=== PATIENT | female | born 1935 | race Caucasian/White ===

== ENCOUNTER → 2018-07-22 06:36 | Outpatient (CLI) | payer MEDICARE, SELFPAY ==
--- NOTE | 2018-07-22 06:40 | NM_ITS ---
History and Indications: Hypertension, hyperlipidemia, family history, chest pain and shortness of breath Procedure: Patient received a 0.4 mg of intravenous Lexiscan, resting heart rate was 61 beats per minutes resting blood pressure 145/75, with Lexiscan maximum heart rate achieved was 80 bpm which is less than 85% of the maximum predicted heart rate and a blood pressure was 125/63. With Lexiscan patient complained of shortness of breath Electrocardiogram: Resting electrocardiogram showed sinus rhythm, with Lexiscan there is less than 1.5 ST segment depression noted from the baseline EKG. The EKG portion of the Lexiscan Myoview is nondiagnostic. Cardiac stress and resting SPECT images: Cardiac stress and rest SPECT images were obtained using technetium 99 Myoview 32.7 mCi stress and 10.9 mCi at rest. Gated SPECT further analysis of segmental wall motion and calculation of the ejection fraction also done. Cardiac stress and rest SPECT images show uniform myocardial activity without segmental perfusion abnormality, computer derived ejection fraction is over 65% no regional wall motion abnormality, right ventricle are normal size and contractility. Conclusion: 1. The EKG portion of the Lexiscan Myoview is nondiagnostic. 2. No obvious scintigraphic evidence of reversible ischemia seen, computer derived ejection fraction is over 65% with no regional wall motion abnormality, right ventricle is normal size and contractility. 3. Normal Lexiscan Myoview study.
--- NOTE | 2018-07-22 06:40 | CA_ITS ---
PROCEDURE: 2-D M-mode and color Doppler study INDICATIONS FOR THE TEST: Chest pain + COPD Heart Murmur Tobacco Smoking Palpitations Fatigue Syncope Edema Hypertension Diabetes Mellitus Rheumatic Fever SOB+DURAN Obesity Hyperlipidemia Family History HD+ Additional History PATIENT INFORMATION HEIGHT: 62 WEIGHT:155 GENDER: Female B/P:130/66 2-D/M-MODE INTERPRETATION: 2-D MEASUREMENTS OBSERVED VALUES IN CMS Right Ventricular Dimension (RVDd) 1.7 Interventricular Septum (Thickness)(IVsd) 1.0 Left Ventricular Internal Dimensions(LVIDd) 5.2 Left Ventricular Posterior Wall (Thickness)(LVPWd) 1.1 Aortic Root 3.5 Aortic Cusp Separation 1.0 Left Atrial Dimensions (LAD) 3.0 2D 1. Left atrium is mildly enlarged, left ventricle is normal size, visually estimated ejection fraction 55% with no regional wall motion abnormality. 2. The right atrium and the ventricular normal size and contractility 3. The aortic valve is thickened and calcified leaflet continue to display mobility. 4. The mitral and tricuspid valve leaflets are minimally thickened 5. The pulmonic valve is poorly visualized. 6. No significant pericardial effusion noted. DOPPLER INTERROGATION: 1. The maximum aortic out flow velocity recorded study 2.2 m/s, resulting in a mean gradient across valve of 9 mmHg represents mild aortic stenosis, there is no aortic insufficiency present. 2. Mild mitral and tricuspid regurgitation, calculated right ventricular systolic pressure is 40 mmHg consistent with mild pulmonary hypertension, grade 1 diastolic dysfunction seen with tissue Doppler evidence of raised left atrial pressure. CONCLUSION: 1. Mildly enlarged left atrium, normal left ventricular size, visually estimated ejection fraction 55% with no regional wall motion abnormality, grade 1 diastolic dysfunction seen with tissue Doppler evidence of raised left atrial pressure. 2. Thickened and calcified aortic valve, mean gradient across valve of 9 mmHg represents mild aortic stenosis, there is no aortic insufficiency. 3. Mild mitral and tricuspid regurgitation, calculated right ventricular systolic pressure is 40 mmHg consistent with mild pulmonary hypertension. 4. No significant pericardial effusion noted.
--- NOTE | 2018-07-22 07:49 | HMH.ITSHM ---
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 []AMLODIPINE ASA CARVEDILOL LEVOTHYROXINE OMEPRAZOLE VITAMIN D3
== END ==
PROVIDERS: PCP Family Medicine; Visit Provider Internal Medicine
DX: R07.89 Other chest pain (principal); R06.02 Shortness of breath
CPT/HCPCS: 78452; 93017; 93306; A9502; J2785

== ENCOUNTER → 2018-08-04 12:03 | Outpatient (CLI) | payer MEDICARE, SELFPAY ==
[2018-08-04 14:05] LABS: Anion Gap 14.2 mEq/L (5-15); Blood Urea Nitrogen 20 mg/dL (7-18); Calcium 9.1 mg/dL (8.5-10.1); Carbon Dioxide 27 mmol/L (21.0-32.0); Chloride 102 mmol/L (98-107); Creatinine,Serum 1.92 mg/dL (0.55-1.02); Estimated Glomerular Filt Rate 25 ml/min (>60); GFR (African American) 30 ML/MIN (>60); Glucose 133 mg/dL (74-106); Potassium 4.2 mmoL/L (3.5-5.1); Sodium 139 mmol/L (136-145)
== END ==
PROVIDERS: Visit Provider Physician Assistant
DX: I20.9 Angina pectoris, unspecified (principal); I27.20 Pulmonary hypertension, unspecified; I35.0 Nonrheumatic aortic (valve) stenosis; R06.02 Shortness of breath; R42 Dizziness and giddiness
CPT/HCPCS: 36415; 80048

== ENCOUNTER → 2018-10-13 09:30 | Outpatient (CLI) | payer MEDICARE, SELFPAY ==
[2018-10-13 11:38] LABS: Anion Gap 13.9 mEq/L (5-15); Blood Urea Nitrogen 26 mg/dL (7-18); Calcium 9.5 mg/dL (8.5-10.1); Carbon Dioxide 30 mmol/L (21.0-32.0); Chloride 101 mmol/L (98-107); Creatinine,Serum 2.18 mg/dL (0.55-1.02); Estimated Glomerular Filt Rate 22 ml/min (>60); GFR (African American) 26 ML/MIN (>60); Glucose 135 mg/dL (74-106); Potassium 3.9 mmoL/L (3.5-5.1); Sodium 141 mmol/L (136-145)
== END ==
PROVIDERS: Nurse Practitioner Family; PCP Family Medicine; Visit Provider Internal Medicine
DX: E78.5 Hyperlipidemia, unspecified (principal); I11.9 Hypertensive heart disease without heart failure; I25.10 Atherosclerotic heart disease of native coronary artery without angina pectoris; I27.20 Pulmonary hypertension, unspecified; I35.0 Nonrheumatic aortic (valve) stenosis; R06.02 Shortness of breath
CPT/HCPCS: 36415; 80048

== ENCOUNTER → 2018-10-20 09:24 | Outpatient (CLI) | payer MEDICARE, SELFPAY ==
[2018-10-20 10:59] LABS: Anion Gap 15.1 mEq/L (5-15); Blood Urea Nitrogen 22 mg/dL (7-18); Calcium 9.4 mg/dL (8.5-10.1); Carbon Dioxide 28 mmol/L (21.0-32.0); Chloride 102 mmol/L (98-107); Estimated Glomerular Filt Rate 25 ml/min (>60); GFR (African American) 31 ML/MIN (>60); Glucose 116 mg/dL (74-106); Potassium 4.1 mmoL/L (3.5-5.1); Sodium 141 mmol/L (136-145)
== END ==
PROVIDERS: Visit Provider Internal Medicine
DX: N18.4 Chronic kidney disease, stage 4 (severe) (principal)
CPT/HCPCS: 36415; 80048

== ENCOUNTER → 2019-02-24 09:43 | Outpatient (CLI) | payer MEDICARE, SELFPAY ==
--- NOTE | 2019-02-24 09:54 | NVE_ITS ---
Venous Exam Indications: 729.5 Pain in limb. IMPRESSIONS 1. There is no evidence of significant Reflux. 2. No evidence of deep or superficial vein thrombosis involving the right lower extremity Right lower extremity venous duplex evaluation. Doppler flow study including spectral analysis, color and cardozo scale imaging. Location: Vascular laboratory. Patient status: Outpatient. Tables: Venous flow and imaging: + +-------+ + + Location Overall Flow properties Comments + +-------+ + + Right common femoral Patent Normal phasicity; spontaneous; normal augmentation; compressible + +-------+ + + Right saphenofemoral Patent Compressible junction + +-------+ + + Right profunda femoral Patent Compressible + +-------+ + + Right femoral Patent Normal phasicity; spontaneous; normal augmentation; compressible + +-------+ + + Right greater Patent Normal phasicity; saphenous spontaneous; normal augmentation; compressible + +-------+ + + Right popliteal Patent Normal phasicity; spontaneous; normal augmentation; compressible + +-------+ + + Right posterior tibial Patent Compressible Difficult to image. + +-------+ + + Right peroneal Patent Compressible Difficult to image. + +-------+ + + Right gastrocnemius Patent Compressible + +-------+ + + Right soleal Patent Compressible + +-------+ + + (Report amended ) Electronically signed by: Rony Courtney [id number]
== END ==
PROVIDERS: PCP Family Medicine; Visit Provider Family Medicine
DX: M79.604 Pain in right leg (principal)
CPT/HCPCS: 93971

== ENCOUNTER → 2021-01-24 10:10 | Outpatient (CLI) | payer MEDICARE, SELFPAY | PROVIDERS: PCP Family Medicine; Visit Provider Urology | DX: I25.118 Atherosclerotic heart disease of native coronary artery with other forms of angina pectoris (principal); I35.0 Nonrheumatic aortic (valve) stenosis | CPT/HCPCS: 93306 ==

== ENCOUNTER → 2021-08-01 14:17 | Outpatient (CLI) | payer MEDICARE, SELFPAY ==
[2021-08-01 14:53] LABS: Basophils # 0.1 K/mm3 (0-0.2); Basophils % 0.8 % (0.1-2.0); Eosinophils # 0.1 K/mm3 (0.0-0.4); Eosinophils % 1.7 % (0.1-12.0); Hematocrit 41.6 % (37.0-47.0); Hemoglobin 14.3 g/dL (12.2-16.2); Lymphocytes # 1.9 K/mm3 (0.7-4.5); Lymphocytes % 24.9 % (10-50); Mean Corpuscular HGB Conc 34.3 g/dL (31.8-35.4); Mean Corpuscular Hemoglobin 30.2 pg (27.0-31.2); Mean Corpuscular Volume 88.1 fl (81-99); Monocytes # 0.4 K/mm3 (0.1-1.0); Monocytes % 5.5 % (1.7-9.3); Neutrophils # 5.2 K/mm3 (1.8-7.8); Neutrophils % 67.1 % (37.0-80.0); Platelet Count 315 K/mm3 (142-424); Red Blood Count 4.72 M/mm3 (4.20-5.40); Red Cell Distribution Width 13.6 % (11.5-17.5); White Blood Count 7.7 K/mm3 (4.8-10.8)
[2021-08-01 15:48] LABS: Chloride 99 mmol/L (98-107); Sodium 138 mmol/L (136-145)
[2021-08-01 15:50] LABS: Alanine Aminotransferase 14 U/L (12-78); Aspartate Amino Transferase 33 U/L (14-36); Bilirubin,Unconjugated 0.5 mg/dL (0.0-1.1); Blood Urea Nitrogen 19 mg/dl (7-17); Carbon Dioxide 28 mmol/L (22.0-30.0); Estimated Glomerular Filt Rate 27 ml/min (>60); GFR (African American) 33 ML/MIN (>60)
[2021-08-01 15:51] LABS: Albumin Level 4.4 g/dl (3.5-5.0); Alkaline Phosphatase 129 U/L (38-126); Bilirubin,Direct 0.2 mg/dl (0.0-0.4); Bilirubin,Indirect 0.4 mg/dL (0.0-0.9); Bilirubin,Total 0.6 mg/dl (0.2-1.3); Calcium 9.5 mg/dl (8.4-10.2); Cholesterol 199 mg/dl (140-200); Glucose 116 mg/dl (74-100); HDL Cholesterol 66 mg/dl (40-60); Total Protein,Serum 7.2 g/dl (6.3-8.2); Triglycerides 128 mg/dl (30-150); VLDL Cholesterol 26 mg/dL (0-40)
== END ==
PROVIDERS: Visit Provider Physician Assistant
DX: E78.5 Hyperlipidemia, unspecified (principal); I11.9 Hypertensive heart disease without heart failure; I25.10 Atherosclerotic heart disease of native coronary artery without angina pectoris; I27.20 Pulmonary hypertension, unspecified; I35.0 Nonrheumatic aortic (valve) stenosis; R06.02 Shortness of breath
CPT/HCPCS: 36415; 80048; 80061; 80076; 85025

== ENCOUNTER 2021-08-29 12:23 | Emergency (ER) | payer OTHER, MEDICARE, SELFPAY ==
[2021-08-29 12:36] VITALS: BP 135/81; PULSE 89; RESP 19; TEMP 36.9; O2SAT 97; BMI 24.0
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
[2021-08-29 14:11] VITALS: BP 135/81; PULSE 89; RESP 19; TEMP 36.9
== END 2021-08-29 14:16 | disposition home or self-care (01) ==
PROVIDERS: Emergency Provider Nurse Practitioner; PCP Family Medicine
DX: S22.42XA Multiple fractures of ribs, left side, initial encounter for closed fracture (principal); V49.3XXA Car occupant (driver) (passenger) injured in unspecified nontraffic accident, initial encounter; Y92.414 Local residential or business street as the place of occurrence of the external cause
CPT/HCPCS: 71101; 99202; G0463

== ENCOUNTER 2023-10-16 17:28 | Emergency (ER) | payer MEDICARE, SELFPAY ==
[2023-10-16 17:45] VITALS: BP 147/87; PULSE 92; RESP 18; TEMP 36.5; O2SAT 96; BMI 23.9
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
--- NOTE | 2023-10-16 18:00 | XR_ITS ---
PROCEDURE INFORMATION: Exam: XR Right Clavicle, Complete Exam date and time: 10/16/2023 6:34 PM Age: 88 years old Clinical indication: Injury or trauma; Fall; Blunt trauma (contusions or hematomas); Shoulder; Right; Additional info: Fell TECHNIQUE: Imaging protocol: Radiologic exam of the right clavicle. Complete exam. Views: Any number of views. COMPARISON: CR XR HUMERUS RT 10/16/2023 6:28 PM FINDINGS: Bones/joints: Right humeral neck fracture. No clavicle fracture. Mild degenerative change of the acromioclavicular joint. Soft tissues: Normal. IMPRESSION: No evidence of a clavicular fracture or acromioclavicular joint separation.
--- NOTE | 2023-10-16 18:01 | PC.NURSE ---
Called RAD about xray
--- NOTE | 2023-10-16 18:30 | PC.NURSE ---
Called RAD about xray
[2023-10-16 19:41] VITALS: BP 147/87; PULSE 92; RESP 18; TEMP 36.5; O2SAT 96
== END 2023-10-16 19:41 | disposition home or self-care (01) ==
PROVIDERS: Emergency Provider Nurse Practitioner Family; PCP Family Medicine
DX: S42.211A Unspecified displaced fracture of surgical neck of right humerus, initial encounter for closed fracture (principal); I11.9 Hypertensive heart disease without heart failure; I20.9 Angina pectoris, unspecified; I27.20 Pulmonary hypertension, unspecified; I65.29 Occlusion and stenosis of unspecified carotid artery; W18.30XA Fall on same level, unspecified, initial encounter
CPT/HCPCS: 73000; 73030; 73060; 99212; 99214; G0463

== ENCOUNTER 2023-10-17 16:20 | Outpatient (CLI) | payer MEDICARE, SELFPAY ==
[2023-10-17 16:40] LABS: Basophils # 0.1 K/mm3 (0-0.2); Basophils % 0.5 % (0.1-2.0); Eosinophils # 0.2 K/mm3 (0.0-0.4); Eosinophils % 1.8 % (0.1-12.0); Hematocrit 40.1 % (37.0-47.0); Hemoglobin 12.8 g/dL (12.2-16.2); Lymphocytes # 2.2 K/mm3 (0.7-4.5); Lymphocytes % 23.9 % (10-50); Mean Corpuscular HGB Conc 31.9 g/dL (31.8-35.4); Mean Corpuscular Hemoglobin 31.2 pg (27.0-31.2); Mean Corpuscular Volume 97.8 fl (81-99); Mean Platelet Volume 7.4 fl (7.4-10.4); Monocytes # 0.6 K/mm3 (0.1-1.0); Monocytes % 6.8 % (1.7-9.3); Neutrophils # 6.2 K/mm3 (1.8-7.8); Platelet Count 259 K/mm3 (142-424); Red Cell Distribution Width 13.6 % (11.5-17.5); White Blood Count 9.2 K/mm3 (4.8-10.8)
--- NOTE | 2023-10-17 16:45 | ECG_ITS ---
APPROVED REPORT Exam: Resting ECG HR:67 bpm ECG Measurements Heart Rate 67 AXES QRSd 92 QRS -3 QT 382 T 35 QTc 398 Conclusion SUPRAVENTRICULAR RHYTHM ABNORMAL RHYTHM ECG UNCONFIRMED REPORT Electronically signed by : Alvarado Leo MD 10/17/2023 19:26:50
[2023-10-17 17:40] LABS: Alanine Aminotransferase 17 U/L (12-78); Albumin Level 4.1 g/dl (3.5-5.0); Albumin/Globulin Ratio 1.6 (1.1-1.8); Alkaline Phosphatase 94 U/L (38-126); Anion Gap 9.5 mEq/L (5-15); Aspartate Amino Transferase 28 U/L (14-36); Bilirubin,Total 0.7 mg/dl (0.2-1.3); Blood Urea Nitrogen 23 mg/dl (7-17); Calcium 9.7 mg/dl (8.4-10.2); Carbon Dioxide 28 mmol/L (22.0-30.0); Chloride 104 mmol/L (98-107); Estimated Glomerular Filt Rate 27 ml/min (>60); GFR (African American) 32 ML/MIN (>60); Globulin 2.5 g/dL (1.3-3.2); Glucose 112 mg/dl (74-100); Magnesium 2.1 mg/dl (1.6-2.3); Phosphorous 4.1 mg/dl (2.5-4.5); Potassium 4.5 mmoL/L (3.5-5.1); Sodium 137 mmol/L (136-145); Total Protein,Serum 6.6 g/dl (6.3-8.2)
[2023-10-17 17:55] LABS: Free T4 (Free Thyroxine) 1.17 ng/dl (0.78-2.19)
[2023-10-17 18:10] LABS: Thyroid Stimulating Hormone 0.43 uIU/mL (0.465-4.68)
== END 2023-10-17 23:59 ==
LOC: RT 16:22
PROVIDERS: PCP Family Medicine; Visit Provider Family Medicine
DX: R42 Dizziness and giddiness (principal); N18.4 Chronic kidney disease, stage 4 (severe); E03.9 Hypothyroidism, unspecified; R94.31 Abnormal electrocardiogram [ECG] [EKG]
CPT/HCPCS: 36415; 80053; 83735; 84100; 84439; 84443; 85025; 93005

== ENCOUNTER 2023-11-04 08:01 | Outpatient (CLI) | payer MEDICARE, SELFPAY ==
--- NOTE | 2023-11-04 08:05 | XR_ITS ---
FINAL REPORT CLINICAL HISTORY: Rt shoulder,hx of fx COMPARISON: 10/16/2023 FINDINGS: RIGHT SHOULDER: 3 views of the right shoulder were obtained. Again noted is an impacted fracture of the surgical neck of the humerus. There is some callus formation at the fracture site. There is lateral rotation of the humeral head fragment. There is mild degenerative change. There is no soft tissue abnormality. IMPRESSION: Humeral fracture again noted with some callus formation. Reviewed, Interpreted and Dictated by Andreas Moore III, MD Transcribed by Susana Menard Authenticated and [facility]
== END 2023-11-04 23:59 ==
LOC: RAD 08:03
PROVIDERS: PCP Family Medicine; Visit Provider Orthopaedic Surgery
DX: S42.301A Unspecified fracture of shaft of humerus, right arm, initial encounter for closed fracture (principal)
CPT/HCPCS: 73030

== ENCOUNTER 2023-11-25 08:58 | Outpatient (CLI) | payer MEDICARE, SELFPAY ==
--- NOTE | 2023-11-25 09:13 | XR_ITS ---
FINAL REPORT CLINICAL HISTORY: right humerus fx COMPARISON: 10/16/2023 FINDINGS: 3 views of the right humerus were obtained. Again noted is an impacted fracture of the surgical neck of the humerus. The bony alignment is stable. There is callus formation at the fracture site which is new compared to the prior study. There is no new bony abnormality. The joint spaces are well preserved. There is no acute soft tissue abnormality. IMPRESSION: New callus formation at previously noted humeral fracture. Reviewed, Interpreted and Dictated by Andreas Moore III, MD Transcribed by Susana Menard Authenticated and [facility]
== END 2023-11-25 23:59 ==
LOC: RAD 08:59
PROVIDERS: PCP Family Medicine; Visit Provider Orthopaedic Surgery
DX: M79.601 Pain in right arm; S42.301A Unspecified fracture of shaft of humerus, right arm, initial encounter for closed fracture
CPT/HCPCS: 73060

== ENCOUNTER 2024-01-06 10:09 | Outpatient (CLI) | payer MEDICARE, SELFPAY ==
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
== END 2024-01-06 23:59 | disposition home or self-care (01) ==
LOC: RAD 10:11
PROVIDERS: PCP Family Medicine; Visit Provider Orthopaedic Surgery
DX: M79.601 Pain in right arm; S42.301A Unspecified fracture of shaft of humerus, right arm, initial encounter for closed fracture
CPT/HCPCS: 73060

== ENCOUNTER 2025-06-09 10:19 | Outpatient (CLI) | payer MEDICARE, SELFPAY ==
--- NOTE | 2025-06-09 10:30 | CA_ITS ---
APPROVED REPORT EXAM: Comprehensive 2D, Doppler, and color-flow Echocardiogram Photographer Motion Picture: Maria Victoria Miller RVT Ht: 5 ft 4 in Wt: 116lbs BSA: 1.55 BP: 140/70 mmHg Indications: SHORTNESS OF BREATH,AORTIC STENOSIS,CORONARY ARTERY DISEASE 2D Dimensions IVSd 1.28 cm F: 0.6-1.0 LVEF (Visual) 62.10 % PWd 0.65 cm F: 0.6 - 1.0 LA Volume 22.50 mL LVDd 4.20 cm F: 3.9 - 5.3 LA Volume Index 14.52 mL/m2 (M/F) 16-34 LVDs 2.81 cm F: 2.2 - 3.5 M-Mode Dimensions LA Diam 2.42 cm (1.9-4.0) TAPSE 2.51 (<1.7) LV Diastology E Decel Time 303 (160-240 msec) E/A Ratio 0.8 Aortic Valve DANNY Index 0.73 cm2/m2 AoV Peak Samuel. 231.0 (50-130 cm/s) AI PHT 1974.00 ms AO Peak GR. 21.30 mmHg AO Mean GR. 11.90 (<5 mmHg) AO VTI 54.0 (18-25 cm) DANNY (VTI) 1.16 (2.5-4.5 cm2) Mitral Valve MV E Max Samuel. 85.0 (40-130 cm/s) MV A Velocity 106.0 (40-130 cm/s) E/A Ratio 0.81 MV PHT 89.0 ms Pulmonary Valve PV Peak Velocity 76.0 (50-150 cm/s) Tricuspid Valve TR P. Velocity 200.00 cm/s RAP Estimate 8.00 mmHg RVSP 24.00 mmHg Left Ventricle The left ventricle is normal size. Left ventricular systolic function is normal. The left ventricular ejection fraction is within the normal range. There is increased left ventricular wall thickness. There is normal LV segmental wall motion. Grade 2 diastolic dysfunction is present. LVEF is 60% Right Ventricle The right ventricle is normal size. The right ventricular systolic function is normal. Atria The left atrium is mildly dilated. The right atrium size is normal. There is no color Doppler evidence of interatrial shunt. Aortic Valve The aortic valve is moderately thickened. Moderate aortic stenosis is present. DANNY by 2D planimetry is 1.1 cm2. Peak velocity is 2.3 m/s, Mean AV gradient is 12 mmHg. Max AV gradient is 22 mmHg. Mild aortic regurgitation is present. Mitral Valve The mitral valve is normal in structure. No evidence of mitral valve stenosis. Trace mitral regurgitation is present. Tricuspid Valve The tricuspid valve leaflets are thin and pliable. Trace tricuspid regurgitation. There is insufficient TR jet to estimate RVSP. Pulmonic Valve The pulmonary valve is grossly normal in structure. Trace pulmonic valve regurgitation is present. Great Vessels The aortic root is normal in size. IVC is normal in size and collapses >50% with inspiration. Pericardium There is no pericardial effusion. Conclusion Normal biventricular systolic function. Grade 2 diastolic dysfunction. Mild LA dilation. Moderate (DANNY by 2D planimetry is 1.1 cm2. Peak velocity is 2.3 m/s, Mean AV gradient is 12 mmHg. Max AV gradient is 22 mmHg). Mild AI. Electronically signed by : Angelina Neville MD 06/18/2025 00:35:25
--- OUTSIDE RECORDS SUMMARY | 2025-06-09 10:47 | XMS_ITS | Clinical Summary ---
Author Organization Healthcare Address [address] [place] [address] Care Team Providers Care Automotive Project Engineer Name Role Phone Carlyle Carroll MD Primary Care Provider [phone] Social History Tobacco Use Types Packs/Day Years Used Date Smoking Tobacco: Never Assessed Comments Unknown Sex and Gender Information Value Date Recorded Sex Assigned at Not on file Legal Sex Female 6:55 PM EDT Gender Identity Not on file Sexual Orientation Not on file Plan of Treatment Health Maintenance Due Date Last Done Comments [facility]-Bone Density Scan 1935 [facility]-Depression Screening 1937 [facility]-Medicare Annual Wellness (AWV) 1937 [facility]-Infant/Child/Adol SDOH Screenings 1937 [facility]- SDOH Screenings 1955 [facility]-Adult SDOH Screenings 1955 [facility]-Zoster Vaccines (1 of 2) 1987 [facility]-RSV Vaccine: 60+ Years or (1 - 1-dose 75+ series) 2012 [id number] Vaccine (3 - season) 2025 10/13/2020, 09/19/2020 [facility]-Influenza Vaccine (#1) 04/18/202505/24, 06/11/2019, 06/05/2018, Additional history exists [facility]-DTaP,Tdap,and Td Vaccines (2 - Td or Tdap) 04/14/2028 04/14/2018 [facility]-Pneumococcal Vaccine: 50+ Years Completed 06/05/2017, 04/03/2015, 08/18/2010 HPV Vaccines Aged Out No longer eligi ble based on patient's age to complete this topic [facility]-HIB Vaccines Aged Out No longer e ligible based on patient's age to complete this topic [facility]-Hepatitis A Vaccines Aged Out No longer eligible based on patient's age to complete this topic [facility]-IPV Vaccines Aged Out No longer e ligible based on patient's age to complete this topic [facility]-Rotavirus Vaccines Aged Out No lo nger eligible based on patient's age to complete this topic [facility] [address] MEDICARE Care Teams Automotive Project Engineer Relationship Specialty Start Date End Date Carlyle Carroll MD [address] [place], [place] [id number] PCP - General 08/18/20
--- OUTSIDE RECORDS SUMMARY | 2025-06-09 10:47 | XMS_ITS | Clinical Summary ---
Author Organization [facility] Address [address] [place] [address] Care Team Providers Care Cougar Hunter Name Role Phone Unavailable Primary Care Provider Unavailabl e Social History Tobacco Use Types Packs/Day Years Used Date Smoking Tobacco: Never Assessed Abuse Screen Answer Date Recorded Unsafe at Home or Work/School Not on file Feels Threatened by Someone? Not on file 05/2023 Does Anyone Keep You from Co ntacting Others or Doint Things Outside the Home? Not on file 05/27/2023 Physical Sign of Abuse Present Not on file 1 Housing Stability Answer Date Recorded Current Living Arrangements Not on file 05/18 Potentially Unsafe Housing Conditions Not on martin e 05/27/2023 Family and Community Support Answer Kris e Recorded Help with Day-to-Day Activities Not on file 05/27/2023 Lonely or Isolated Not on file 05/27/2023 Employment Answer Date Recorded Do you want help finding or keeping work or a soraya b? Not on file 05/27/2023 Disabilities Answer Date Recorded Concentrating, Remembering, or Making Decisions Difficulty Not on file 05/27/2023 Doing Errands Independently Difficulty Not on fi le 05/27/2023 Education Answer Date Recorded Help with school or training? Not on file Preferred Language Not on file 05/27/2023 Comments Unknown Sex and Gender Information Value Date Recorded Sex Assigned at Not on file Legal Sex Female 1:45 PM EDT Gender Identity Not on file Sexual Orientation Not on file Plan of Treatment Health Maintenance Due Date Last Done Comments ANNUAL PHYSICAL 1935 DXA SCAN 1935 TDAP/TD VACCINES (1 - Tdap) 1956 Pneumococcal Vaccine 50+ (1 of 1 - PCV) 1987 ZOSTER VACCINE (1 of 2) 1987 RSV Vaccine - Adults (1 - 1-dose 75+ series) 2 INFLUENZA VACCINE 03/18/2025 COVID-19 Vaccine ( season) 2025
== END 2025-06-09 23:59 | disposition home or self-care (01) ==
LOC: RT 10:19
PROVIDERS: PCP Family Medicine; Visit Provider Nurse Practitioner
DX: I35.2 Nonrheumatic aortic (valve) stenosis with insufficiency (principal); I51.89 Other ill-defined heart diseases; I51.7 Cardiomegaly; I25.10 Atherosclerotic heart disease of native coronary artery without angina pectoris
CPT/HCPCS: 93306